=== PATIENT | female | born 1955 | race Caucasian/White ===

== ENCOUNTER → 2021-05-06 | Outpatient (CLI) | payer MEDICARE, BC ==
[~2021-05-06] MED LIST: ALLEGRA180 MG PO; AMOXIL500 MG PO; AUGMENTIN 875 M1 TAB PO; CARAFATE1 G1 PO; CIPRODEX 0.3%-7.5 ML OT; CYMBALTA60 MG PO; MOTRIN800 MG PO; PRILOSEC40 MG PO; PROTONIX40 MG PO; SUDAFED60 MG PO; SYNTHROID,LEV125 MCG PO; TYLENOL500 MG PO; VICODIN 5/500 505 MG PO
[2021-05-06 15:37] LABS: BASO % 0.2 % (0.0-1.0); EOS # 0.1 10*3/uL (0.0-0.4); EOS % 1.2 % (1.0-4.0); HEMATOCRIT 33.3 % (37.0-47.0); LYMPH # 1.8 10*3/uL (1.3-4.4); LYMPH % 36.4 % (27.0-41.0); MEAN CELL VOLUME 95.4 fl (81.0-99.0); MEAN CORPUSCULAR HGB 30.1 pg (27.0-31.0); MEAN CORPUSCULAR HGB CONC 31.5 g/dl (33.0-37.0); MEAN PLATELET VOLUME 9.2 fl (9.6-12.3); MONO # 0.3 10*3/uL (0.1-1.0); MONO % 5.9 % (3.0-9.0); NEUT # 2.7 10*3/uL (2.3-7.9); NEUT % 55.9 % (47.0-73.0); PLATELET COUNT AUTOMATED 232 10*3/uL (130-400); RED BLOOD COUNT 3.49 10*6/uL (4.10-5.10); RED CELL DISTRI WIDTH 15.8 % (0-14.5); WHITE BLOOD COUNT 4.9 10*3/uL (4.8-10.8)
== END | disposition home or self-care (01) ==
LOC: LAB 15:12
PROVIDERS: Internal Medicine; ATTEND Orthopaedic Surgery
DX: I10 Essential (primary) hypertension (principal); E53.8 Deficiency of other specified B group vitamins; E67.2 Megavitamin-B6 syndrome; A69.20 Lyme disease, unspecified